=== PATIENT | male | born 1985 ===

== ENCOUNTER → 2021-06-08 | Outpatient (CLI) | payer OTHER | LOC: COL.RAD 05-19 08:15 | DX: M48.061 Spinal stenosis, lumbar region without neurogenic claudication (principal); M51.27 Other intervertebral disc displacement, lumbosacral region ==

== ENCOUNTER → 2023-11-14 | Outpatient (CLI) | payer OTHER | LOC: MHCPAIN 09:16 | DX: M47.897 Other spondylosis, lumbosacral region (principal); M54.16 Radiculopathy, lumbar region; M51.36 Other intervertebral disc degeneration, lumbar region | CPT/HCPCS: G0463 ==

== ENCOUNTER → 2023-11-30 | Outpatient (CLI) | payer OTHER ==
[~2023-11-30] MED LIST: Iohexol 300 - 10 ML VIAL ONE; Lidocaine PF 2% (20 MG/ML) 2 ML VIAL ONE
== END ==
LOC: MHCPAIN 13:07
DX: M54.17 Radiculopathy, lumbosacral region (principal)
CPT/HCPCS: J1100; Q9967

== ENCOUNTER → 2024-02-05 | Outpatient (CLI) | payer OTHER | LOC: MHCPAIN 15:50 | DX: M47.817 Spondylosis without myelopathy or radiculopathy, lumbosacral region (principal); M48.061 Spinal stenosis, lumbar region without neurogenic claudication; M47.812 Spondylosis without myelopathy or radiculopathy, cervical region; M48.02 Spinal stenosis, cervical region | CPT/HCPCS: G0463 ==

== ENCOUNTER → 2024-04-08 | Outpatient (CLI) | payer OTHER | LOC: MHCPAIN 13:28 | DX: M47.817 Spondylosis without myelopathy or radiculopathy, lumbosacral region (principal); M48.07 Spinal stenosis, lumbosacral region; M54.50 Low back pain, unspecified; M54.2 Cervicalgia; M54.12 Radiculopathy, cervical region; G43.909 Migraine, unspecified, not intractable, without status migrainosus | CPT/HCPCS: G0463 ==